=== PATIENT | male | born 1990 | race Caucasian/White ===

== ENCOUNTER 2019-06-26 18:07 | Emergency (ER) | payer OTHER, SELFPAY ==
[2019-06-26 18:19] VITALS: BP 108/73; PULSE 69; RESP 20; TEMP 36.6; O2SAT 100; BMI 26.6
--- NOTE | 2019-06-26 18:24 | CT_ITS ---
STUDY: CT ABDOMEN AND PELVIS WITH CONTRAST REASON FOR EXAM: Male, 28 years old. Kicked in the groin by a horse RADIATION DOSAGE (If Supplied By Facility): CTDIvol = ( 15.99 ) mGy, DLP = ( 870.33 ) mGycm TECHNIQUE: Transaxial images were obtained from the dome of the diaphragm to the symphysis pubis without oral contrast. 100ML IV Isovue 300 was administered. Sagittal and coronal images were reconstructed. Individualized dose optimization techniques were used for this CT. COMPARISON: None. FINDINGS: The visualized lung bases are unremarkable. The visualized portions of the heart are within normal limits. Normal liver. Normal gallbladder and extrahepatic biliary system. Normal spleen. Normal pancreas. Normal bilateral adrenal glands. Normal right kidney. Normal left kidney. Normal visualized stomach. Normal small intestine. Normal colon. The appendix is visualized and appears normal. Normal abdominal aorta. Normal inferior vena cava. Normal retroperitoneum. Normal urinary bladder. Unremarkable prostate Normal abdominal wall. Normal osseous structures. CT/Abdomen/Pelvis W IV Cont ONLY IMPRESSION: Normal enhanced CT of the abdomen and pelvis. Electronically Signed: Bj Mobley DO at 18:50 EDT Tel , Service support ,
--- NOTE | 2019-06-26 18:26 | ED.DCSUM_ITS ---
History of Present Illness Chief Complaint: Male Pain/Injury Detail of Chief Complaint: Kicked by horse Informant: Patient Onset: Today Current Severity: Mild Maximum Severity: Mild Narrative: Patient states that he was kicked in the lower abdomen/groin by a horse sometime after 5 PM today. He states he put the horse back in the pen. He started walking to the house but felt like he might pass out. He states he was going to lean over a post but woke up on the ground. He then got up and ambulated again. On arrival to the emergency room patient states that it felt like he might pass out again. He denies having significant pain. He states he feels short of breath but does not have any chest pain. Past Medical History - Allergies and Home Meds Allergies/Adverse Reactions: Allergies No Known Allergies Allergy (Verified 06/26/19 18:08) Past Medical History: None Review of Systems General: Denies: Chills, Fever Eyes: Denies: Visual changes - bilaterally ENT: Denies: Bilateral ear pain Cardiovascular: Denies: Chest pain, Palpitations Respiratory: Reports: Dyspnea. Denies: Cough, Sputum Gastrointestinal: Reports: Abdominal pain - Minimal Musculoskeletal: Denies: Back pain Neurological: Denies: Headache Endocrine: Denies: Polyuria, Polydipsia Hematologic: Denies: Easy bruising Allergy: Denies: Uticaria Physical Exam Vital Signs/Narrative: Vital Signs Temp Pulse Resp BP Pulse Ox 06/26/19 18:19 97.8 F 69 20 H 108/73 100 Inital Vital Signs reviewed: Yes General: Well nourished, Well developed Head: Normocephalic ENT: Moist mucous membranes Neck: Supple, Nontender Cardiovascular: Regular rate, Regular rhythm Respiratory: No distress, CTA bilaterally, Chest nontender Abdomen: Soft, Tender - Minimal suprapubic tenderness. No distention. No ecchymosis., Hypoactive bowel sounds. Negative for: Guarding, Rebound tenderness : - - No ecchymosis or edema on either groin line. No tenderness to palpation over the hips. Extremities: Nontender Skin: Normal color Neurological: Alert, Oriented x3 Psychological: - - Anxious Diagnostic/Tx/Re-eval Impressions Abdomen/Pelvis CT 06/26/19 18:24 IMPRESSION: Normal enhanced CT of the abdomen and pelvis. Electronically Signed: Bj Mobley DO at 18:50 EDT Tel , Service support , 06/26/19 18:24 Abdomen/Pelvis W IV Cont ONLY [CT] Stat Laboratory Results 06/26/19 06/26/19 06/26/19 18:45 18:45 20:49 WBC 7.6 RBC 5.21 Hgb 14.8 Hct 41.2 MCV 79.1 L MCH 28.4 MCHC 35.9 RDW Std Deviation 35.1 RDW Coeff of Radha 12.4 Plt Count 232 MPV 8.4 Immature Gran % (Auto) 0.300 Neut % (Auto) 57.0 Lymph % (Auto) 30.6 [place] % (Auto) 9.7 Eos % (Auto) 2.0 Baso % (Auto) 0.4 Absolute Neuts (auto) 4.3 Absolute Lymphs (auto) 2.31 Nucleated RBC % 0 Sodium 136 Potassium 2.8 L Chloride 104 Carbon Dioxide 24.0 Anion Gap 8 BUN 18 Creatinine 1.13 Estim Creat Clear Calc 94.16 Est GFR (MDRD) Af Amer 99 Est GFR (MDRD) Non-Af 82 BUN/Creatinine Ratio 15.9 Glucose 73 L Calcium 8.9 Urine Color Yellow Urine Clarity Clear Urine pH 7.0 Ur Specific [place] 1.005 Urine Protein Negative Urine Glucose (UA) Normal Urine Ketones 5 H Urine Occult Blood Negative Urine Nitrite Negative Urine Bilirubin Negative Urine Urobilinogen Normal Ur Leukocyte Esterase Negative Urine RBC 0 SEEN Urine WBC 0 SEEN Ur Squamous Epith Cells 0 SEEN Urine Bacteria 0 SEEN Urine Mucus 0 SEEN - Medical Decision Making Patient was given IV fluids, fentanyl, and Zofran. On repeat evaluation he feels significantly improved. He denies any pain currently. He is given potassium replacement orally. Test results are discussed with he and his at bedside. He does not want anything for pain at home. He will be written a few more days of potassium replacement. If he has any concerns or worsening symptoms he is to return immediately. ED Disposition - Plan for ED Patient: Disposition: Home or Assisted Living Diagnosis: Blunt injury of abdomen, Hypokalemia, Syncope Instructions: ABDOMINAL TRAUMA, Blunt (benign), Hypokalemia, SYNCOPE, Unk Cause Prescriptions: Potassium Chloride [K-Dur] 20 meq PO BID #10 tablet Referrals: Luis Angel Mccarty DO [Primary Care Provider] - 3-5 Days
[2019-06-26] MEDS: fentaNYL 100 MCG/2 ML Ampul 25 MCG IV (18:44)
[2019-06-26] MEDS: Ondansetron 4 MG/2 ML Vial IV (18:44)
[2019-06-26] MEDS: 0.9% Normal Saline 1,000 ML 1000 ML IV (18:44)
[2019-06-26 18:58] LABS: Absolute Lymphocyte Count 2.31 X10^3/uL (0.83-4.51); Absolute Neutrophil Count 4.3 X10^3/uL (2.0-7.7); Basophil# 0.03 X10^3/uL; Basophil% 0.4 % (0-1); Eosinophil# 0.15 X10^3/uL; Hematocrit 41.2 % (40-54); Hemoglobin 14.8 g/dL (13.0-16.5); Lymphocyte # 2.31 X10^3/ul (4.0); Lymphocyte % 30.6 % (19-41); Mean Corp Hgb Conc 35.9 g/dL (32-36); Mean Corpuscular Hgb 28.4 pg (27.0-32.0); Mean Corpuscular Volume 79.1 fL (80-94); Mean Platelet Vol. 8.4 fl (6.2-12.0); Monocyte# 0.73 X10^3/uL; Monocyte% 9.7 % (0-10); NRBC Flagged by Analyzer 0 % (0-5); Neutrophil # 4.31 X10^3/uL (2.7-7.7); Platelet Count 232 K/mm3 (150-450); RBC Distribution Width CV 12.4 % (11.6-14.6); RBC Distribution Width SD 35.1 fl (35.1-43.9); Red Blood Count 5.21 M/mm3 (4.6-6.2); White Blood Count 7.6 K/mm3 (4.4-11.0)
[2019-06-26 19:06] LABS: Anion Gap 8 (5-15); BUN 18 mg/dL (7-18); BUN/Creat Ratio 15.9 RATIO (10-20); Calcium,Total 8.9 mg/dL (8.5-10.1); Chloride 104 mmol/L (98-107); Creatinine, Serum 1.13 mg/dL (0.70-1.30); EST Glomerular Filtration Rate 82 mL/min (>60); Est Glom Filt Rate - Afr Amer 99 mL/min (>60); Estimated Creatinine Clearance 94.16 ml/min; Glucose 73 mg/dL (74-106); Potassium 2.8 mmol/L (3.5-5.1); Sodium Level 136 mmol/L (136-145)
[2019-06-26] MEDS: 0.9% Normal Saline 1,000 ML 150 ML IV (20:54)
[2019-06-26 20:56] LABS: Bacteria 0 SEEN /hpf (None Seen); Mucous, Urine 0 SEEN /hpf (<or=2+); Red Blood Cells-Urine 0 SEEN /hpf (0-5); Squamous Epithelial Cells - UA 0 SEEN /hpf (0-5); White Blood Cells 0 SEEN /hpf (0-5)
[2019-06-26 20:58] LABS: Color, Urine Yellow (Yellow); Glucose, Dipstick Normal (Normal); Ketone-Dipstick 5 mg/dl (Negative); Leukocyte Esterase-Dipstick Negative /ul (Negative); Nitrite-Dipstick Negative (Negative); Occult Blood-Urine Negative /ul (Negative); Protein-Dipstick Negative (Negative); Specific Gravity, Urine 1.005 (1.002-1.030); Urine Bilirubin Dipstick Negative (Negative); Urine Clarity Clear (Clear); Urine Urobilinogen Normal (Normal)
== END 2019-06-26 21:56 | disposition home or self-care (01) ==
PROVIDERS: Emergency Provider Emergency Medicine; Family Provider Family Medicine; PCP Family Medicine
DX: S39.91XA Unspecified injury of abdomen, initial encounter (principal); W55.12XA Struck by horse, initial encounter; Y93.89 Activity, other specified; Y92.89 Other specified places as the place of occurrence of the external cause; E87.6 Hypokalemia; R55 Syncope and collapse
CPT/HCPCS: 74177; 80048; 81001; 85025; 96361; 96374; 96375; 99285; J7030; Q9967; J2405

== ENCOUNTER 2025-02-03 17:57 | Emergency (ER) | payer OTHER, SELFPAY ==
[2025-02-03 17:58] VITALS: BP 134/79; PULSE 81; RESP 17; TEMP 36.7; O2SAT 100
[2025-02-03] MEDS: Ondansetron 4 MG/2 ML Vial IV (18:09)
[2025-02-03] MEDS: fentaNYL 100 MCG/2 ML Ampul 50 MCG IV (18:09)
[2025-02-03] MEDS: Diphth,Pertuss(Acell),Tet Vac 0.5 ML Vial IM (18:14)
[2025-02-03] MEDS: Cefazolin 1 GM/50 ML BAG IV (18:19)
--- NOTE | 2025-02-03 18:23 | EX.ED.UPPERE ---
HPI History of Present Illness HPI Narrative: 34-year-old male right hand dominant. He is an [place] male. He was cutting things at home when he accidentally lacerated his left antecubital area of his left arm. There was heavy bleeding at the scene. He was brought in by ambulance holding direct pressure. Unsure of his last tetanus was he ever has had 1. Denies any other injuries. Chief Complaint: Laceration Onset/Context/Timing Current Severity: Severe Maximum Severity: Severe Associated Symptoms Associated Symptoms: Positive for Parasthesia and Loss of Funtion Narrative Narrative: Healthy 34-year-old [place] male [id number]. Accidental laceration to his left antecubital area of his arm and forearm. Heavy bleeding. Occurred less than an hour ago. Unsure of his tetanus. Tetanus Immunization: Unknown Prior similar symptoms: No Recent Illness/Hospitalization: No PFSH PFSH Medical History no medical history no medical history Home Medications ?Medication ?Instructions ?Recorded ?Last Taken ?Type potassium chloride 20 mEq 20 meq PO BID #10 tabs 06/26/19 Unknown Rx tablet,extended release(part/cryst) Allergy/AdvReac Type Severity Reaction Status Date / Time No Known Allergies Allergy Verified 06/26/19 18:08 Surgical History no surgical history no surgical history Social History Smoking Status: Never smoker ROS ROS ED ROS Narrative Denies recent illness. Constitutional Constitutional ED: Denies chills or fever(s) Eyes Eyes: Denies blurry vision ENT ENT ED: Denies ear pain Cardiovascular Cardiovascular: Denies chest pain Respiratory/Chest Respiratory/Chest: Denies cough or dyspnea Gastrointestinal Gastrointestinal: Denies abdominal pain Genitourinary Genitourinary ED: Denies dysuria or hematuria Musculoskeletal Musculoskeletal: Denies back pain or myalgias Integumentary Denies abscess or Abrasions Neurologic Neurologic: Denies headache(s) Psychiatric Psychiatric: Denies anxiety or depression Endocrine Endocrinology: Denies cold intolerance Hematologic/Lymphatic Hematologic/Lymphatic: Reports lymphadenopathy Allergic/Immunologic Allergic/Immunologic ED: Denies mouth swelling, tongue swelling or urticaria EXAM Physical Exam Narrative Exam Narrative: 34-year-old male vital signs are stable afebrile. Initial blood pressure 134/79. Pulse 81. HEENT exam pupils round react light. Mytrex membranes. No trauma nose face or scalp. Neck nontender. Lungs clear equal and symmetric. Heart regular rhythm rate about 80 no murmur. Chest wall ribs nontender. Abdomen soft nontender. Right upper and both lower extremities are nontender no deformity. Normal range of motion and strength. Patient has a significant laceration to the left arm palmar side around the area antecubital area. There is heavy dark venous bleeding. Only controlled with direct pressure. He had a tourniquet on by squad which removed. And controlled the bleeding with direct pressure. He does have a palpable radial pulse on his left wrist. Currently he cannot open and close his left hand. He does not have sensation. But he does have cap refill. Neurologically he is awake and alert. Answering questions following commands. GCS of 15. Const Vital Signs: 02/03/25 17:58 02/03/25 18:16 Temperature 98.1 F Temperature Source Temporal Pulse Rate 81 Respiratory Rate 17 Respiratory Effort Normal Non-Labored Respiratory Depth Normal Respiratory Pattern Normal Blood Pressure 134/79 H Blood Pressure Mean 97 Pulse Ox 100 Oxygen Delivery Method Room Air Room Air Positive well nourished and well developed; Negative for obese, cachectic, contractures or unkempt General Appearance ED: well developed; Negative for unkempt, cachectic, contractures, cyanotic, diaphoretic or NAD Nutritional Appearance: Negative for cachectic or obese HEENT Reports moist mucous membranes normocephalic and atraumatic Eyes PERRL and EOMs intact bilaterally General Eye ED: Negative for other Neck full ROM and supple General: Negative for tenderness Lymph Lymphatic: Negative for other Chest Wall inspection of chest normal and palpation of chest normal Chest: Negative for other Resp normal respiratory effort and clear to auscultation bilaterally Effort and Inspection: Negative for pain with movement Auscultation: Negative for rales, rhonchi or wheezes Cardio regular rate, regular rhythm, S1 normal heart sound, S2 normal heart sound and no murmurs Rate: Negative for bradycardia or tachycardic GI non-tender, non-distended and no masses Palpation: soft; Negative for tender, guarding or rebound tenderness present Back/Spine Back/Spine Narrative: Did not evaluate his back due to positioning of his arm and the active bleeding.. Extremity normal to inspection and full ROM Extremity Narrative: Left arm antecubital area laceration involving skin subcu tissue and at least veins. Heavy bleeding of dark blood controlled with direct pressure. No obvious bright red blood or pulsatile bleeding. Distally the left hand is numb. He has a palpable radial pulse and cap refill. He is unable to move the digits of his left hand. 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 And he currently is denying any sensation. General Extremety ED: Negative for edema or other findings General Extremity: Negative for edema or other findings Neuro oriented x3, moves all extremities, No no focal motor deficits and No no sensory deficits noted Neuro Narrative: Loss of motor strength of his left hand. Unable to open and close it. Palpable radial pulse. Hand is numb on the left. He does have cap refill. Sensorium / Orientation: alert, oriented to person, oriented to place and oriented to time; Negative for orientation impaired, lethargic or stuporous Motor Exam: strength abnormal; Negative for strength 5/5 throughout Psych mental status grossly normal Appearance: Negative for unkempt Attitude: No agitated Mood & Affect: Negative for depressed, anxious or tearful Skin General Skin Exam: Negative for petechiae Lesions: no lesions Rashes: no rashes Trauma: laceration MDM MDM MDM Narrative Medical decision making narrative: 34-year-old [facility] male laceration left antecubital area with at least vascular damage to the vein may or may not have arterial injury also. May or may not have neurological injury. He has loss of sensation and strength of the left hand he does have a radial pulse and cap refill. Were able to control the bleeding with direct pressure only. Screening labs are being obtained. Tetanus and tetanus immunoglobulin be updated. He is unsure if he is ever had a tetanus shot. Started on IV Ancef. I have already spoken macula general will be taken there by ground his blood. Due to the weather they are unable to fly at this time. Lab Data Attestation: I reviewed the patient's lab results. Lab results narrative: CBC unremarkable. White count of 7. H&H of 14 and 43. Platelets 243. Discharge Plan Triage Chief Complaint: Laceration ED Provider: Gary Armas Dx/Rx/DC Orders Clinical Impression: Laceration of left arm with complication, Vascular injury of left arm Prescriptions: No Action potassium chloride 20 MEQ tablet 20 meq PO BID Qty: 10 0RF Primary Care Provider: Luis Angel Mccarty Referrals: Luis Angel Mccarty DO [Primary Care Provider] - Print Language: Kiswahili Disposition Disposition: Acute Care Hospital
[2025-02-03 18:26] VITALS: BP 128/78; PULSE 75; RESP 18; O2SAT 100
[2025-02-03 18:27] LABS: Hematocrit 40.6 % (40-54); Hemoglobin 14.3 g/dL (13.0-16.5); Mean Corp Hgb Conc 35.2 g/dL (32-36); Mean Corpuscular Hgb 27.7 pg (27.0-32.0); Mean Corpuscular Volume 78.5 fL (80-94); Mean Platelet Vol. 8.9 fl (6.2-12.0); Platelet Count 293 K/mm3 (150-450); RBC Distribution Width CV 12.6 % (11.6-14.6); RBC Distribution Width SD 35.9 fl (35.1-43.9); Red Blood Count 5.17 M/mm3 (4.6-6.2)
[2025-02-03 18:40] LABS: Prothrombin Time (Protime)PT. 13.5 SECONDS (11.7-14.9)
[2025-02-03 18:54] LABS: Anion Gap 16 (5-15); BUN 17 mg/dL (4-19); Calcium,Total 9.6 mg/dL (7.6-11.0); Carbon Dioxide 18.4 mmol/L (21.0-32.0); Chloride 104 mmol/L (98-108); EST Glomerular Filtration Rate 81 (>60); Glucose 91 mg/dL (70-99); Potassium 3.1 mmol/L (3.3-5.1); Sodium Level 138 mmol/L (133-145)
== END 2025-02-03 18:40 | disposition short-term general hospital (02) ==
LOC: ED 18:36
PROVIDERS: Emergency Provider Emergency Medicine; PCP Family Medicine; Visit Provider Emergency Medicine
DX: S41.112A Laceration without foreign body of left upper arm, initial encounter (principal); Z23 Encounter for immunization; S45.902A Unspecified injury of unspecified blood vessel at shoulder and upper arm level, left arm, initial encounter; W26.8XXA Contact with other sharp object(s), not elsewhere classified, initial encounter; Y92.009 Unspecified place in unspecified non-institutional (private) residence as the place of occurrence of the external cause
CPT/HCPCS: 80048; 85027; 85610; 96365; 96375; 99285; A4216; J2405